=== PATIENT | female | born 1960 | race Caucasian/White ===

== ENCOUNTER 2019-03-27 11:15 | Emergency (ER) | payer SELFPAY ==
[2019-03-27] MEDS ORDERED: Sterile Water 10 ML ONE (12:04)
[2019-03-27] MEDS ORDERED: Ondansetron ODT 4 MG TAB ONE (12:04)
[2019-03-27] MEDS ORDERED: cefTRIAXone\\ROCEPHIN 1 GM VIAL ONE ×2 (12:04→12:22)
--- NOTE | 2019-03-27 12:21 | RAD ---
PA AND LATERAL CHEST: Date: 03/27/2019 HISTORY: Cough. FINDINGS: Heart size and mediastinum within normal limits. Lungs are clear of any confluent infiltrative proces s. Interstitial markings appear slightly increased, which may be chronic in nature. IMPRESSION: No active intrathoracic disease. POS: [facility]
[2019-03-27 12:38] LABS: #Basophils 0.1 thou/uL (0.0-0.2); #Lymphocytes 2.3 thou/uL (1.20-3.40); #Monocytes 1.1 thou/uL (0.11-0.59); #Neutrophils 12.9 thou/uL (1.40-6.50); %Basophils 0.5 % (0.0-1.0); %Lymphocytes 14.2 % (21.0-51.0); %Monocytes 6.7 % (0.0-10.0); %Neutrophils 78.6 % (42.0-75.0); Hemoglobin 14.4 g/dL (12.0-16.0); Mean Corpuscular HGB CONC 29.5 g/dL (32.0-36.0); Mean Corpuscular Hemoglobin 27.3 pg (27.0-31.0); Mean Corpuscular Volume 92.6 fL (78.0-98.0); Mean Platelet Volume 9.4 fL (7.4-10.4); Platelet Count 431 thou/uL (130-400); RBC Distribution Width 13.3 % (11.5-14.5); Red Blood Cell (RBC) Count 5.29 mill/uL (4.20-5.40); White Blood Cell (WBC) Count 16.5 thou/uL (4.8-10.8)
[2019-03-27 12:41] LABS: Anion Gap 18 mmol/L (10-20); BUN (Urea Nitrogen) 31 mg/dL (9.8-20.1); Calc. Creatinine Clearance 0 mL/min (70-130); Calcium 10.4 mg/dL (7.8-10.44); Carbon Dioxide 20 mmol/L (22-29); Chloride 97 mmol/L (98-107); Estimated GFR-MDRD 42; Potassium 4.7 mmol/L (3.5-5.1); Sodium 130 mmol/L (136-145)
[2019-03-27 12:42] LABS: Bilirubin Negative (Negative); Blood, Urine Negative (Negative); Clarity Clear (Clear); Glucose, Urine (Dipstick) >=1000 mg/dL (Negative); Leukocyte Negative (Negative); Nitrite Negative (Negative); Protein, Urine (Dipstick) Negative (Neg-Trace); Urobilinogen 0.2 mg/dL (Less than 2)
[2019-03-27 12:54] LABS: Glucose 697 mg/dL (70-105)
[2019-03-27] MEDS ORDERED: Insulin Regular 300 UNITS/3 ML VIAL ONE (13:40)
[2019-03-27] MEDS ORDERED: Sodium Chloride 0.9% 1,000 ML ONE (13:40)
[2019-03-27 13:52] LABS: Chloride 96 mmol/L (98-107); Sodium 132 mmol/L (138-145)
[2019-03-27 13:54] LABS: Phosphorus 2.8 mg/dL (2.3-4.7)
[2019-03-27 14:00] LABS: Base Excess-Venous -1.6 mmol/L (-2.0 to 3.0); Bicarbonate (HCO3v) 23.8 mmol/L (22.0-28.0); CO2 Tension (PvCO2) 41.4 mmHg (40.0-50.0); Calcium, Ionized 1.29 mmol/L (See Comments:); Hemoglobin - Calc 15.3 g/dL (12.0-16.0); Potassium 5.2 mmol/L (3.5-5.1); T. Carbon Dioxide 25.1 mmol/L (22.0-28.0); vO2 Saturation-calc 98.7 % (60.0-85.0)
[2019-03-27] MEDS ORDERED: Sodium Chloride 0.9% 250 ML 250 ML ONE (14:28)
[2019-03-27] MEDS ORDERED: Sodium Chloride 0.9% 3,000 ML ONE (14:28)
[2019-03-27] MEDS ORDERED: Azithromycin 500 MG VIAL ONE (14:28)
== END 2019-03-27 16:33 | disposition short-term general hospital (02) ==
LOC: MADERS 11:15
DX: A41.9 Sepsis, unspecified organism (principal); R65.20 Severe sepsis without septic shock; E11.65 Type 2 diabetes mellitus with hyperglycemia; R11.2 Nausea with vomiting, unspecified; E03.9 Hypothyroidism, unspecified; I10 Essential (primary) hypertension; F41.9 Anxiety disorder, unspecified; F32.9 Major depressive disorder, single episode, unspecified
CPT/HCPCS: 36415; 36416; 71046; 80048; 81003; 82330; 82803; 83605; 83735; 84100; 84443; 85025; 87040; 87086; 96365; 96367; 96372; 96375; J0456; J0696; J1815; J7050; Q0162